=== PATIENT | male | born 1980 | race Caucasian/White ===

== ENCOUNTER 2021-03-01 22:17 | Emergency (ER) | payer SELFPAY ==
[~2021-03-01] VITALS: Ht 167.6 cm; Wt 60.0 kg
[2021-03-01] MEDS ORDERED: THIAMINE 100 MG in SODIUM CHLORIDE 0.9% 50 ML IVPB ONE (23:30)
[2021-03-01] MEDS ORDERED: SODIUM CHLORIDE FLUSH 10ML SYR IVF ONE (23:30)
[2021-03-01] MEDS ORDERED: SODIUM CHLORIDE 0.9% 1,000ML IVBOLUS ONE (23:30)
--- NOTE | 2021-03-01 23:50 | NUR ---
CC OF ETOH AND GLF. PER EMS REPORT PT HAS BEEN DRINKING MORE THEN USUAL DUE TO NEW STRESSORS IN LIFE. PT HAS BEEN HAVING MORE GLF FROM ETOH USE AND ROOMMATE CONCERED SO ROOMATE CALLED EMS. PT REPORTS DRINKING "LOTS" AND STATES HE HAS HAD SZ IN PAST FROM ETOH. PT RECEIVED 1 L NS FROM EMS AND HAS PIV 18 GUAGE TO RIGHT FOREARM. PT IS ABLE TO ANSWER ORIENTATION QUESTIONS APPROPRIATELY. PT SHAKY IN GURNEY AND CONTINOUSLY TAKES OFF OXYGEN AND ROUGH RICE GRADER LEADS.
[2021-03-02 00:08] LABS: BASOPHILS % (AUTO) 1 % (0-1); EOSINOPHILS % (AUTO) 1 % (1-7); LYMPHOCYTES % (AUTO) 23 % (22-44); MD NO; MEAN CORPUSCULAR HEMOGLOBIN 33.4 pg (27.5-34.5); MEAN CORPUSCULAR HGB CONC 34.7 g/dL (33.2-36.2); MEAN PLATELET VOLUME 7.7 fL (7.4-10.4); MONOCYTES % (AUTO) 11 % (2-9); NEUTROPHILS % (AUTO) 63 % (42-75); PLATELET COUNT 137 x10^3/uL (130-400); RED BLOOD COUNT 4.51 x10^6/uL (4.38-5.82)
[2021-03-02 00:09] LABS: ALBUMIN 3.2 g/dL (3.4-5.0); ANION GAP 7 mmol/L (5-15); CALCIUM 7.5 mg/dL (8.5-10.1); CHLORIDE 106 mmol/L (98-107); CREATININE 0.56 mg/dL (0.7-1.3)
[2021-03-02] MEDS ORDERED: POTASSIUM CHLORIDE 20 MEQ TAB.ER.PRT PO ONE (00:30)
[2021-03-02 01:00] VITALS: BP 127/79
[2021-03-02] MEDS ORDERED: POTASSIUM CHLORIDE 20 MEQ TAB.ER.PRT ONE (01:10)
== END 2021-03-02 01:17 | disposition home or self-care (01) ==
LOC: ED 22:18
DX: S20.211A Contusion of right front wall of thorax, initial encounter (principal); F10.220 Alcohol dependence with intoxication, uncomplicated; Y90.0 Blood alcohol level of less than 20 mg/100 ml; W18.30XA Fall on same level, unspecified, initial encounter; Y93.89 Activity, other specified; Y92.89 Other specified places as the place of occurrence of the external cause; Y99.8 Other external cause status
CPT/HCPCS: 36415; 71045; 80048; 82040; 85025; 96361; 96365; 99284; J3411; J7030